=== PATIENT | male | born 1965 | race African-American/Black ===

== ENCOUNTER 2018-08-31 09:19 | Emergency (ER) | payer MEDICARE, MEDICAID ==
--- NOTE | 2018-08-31 13:31 | RAD ---
CHEST TWO VIEWS: Date: 08-31-18 Comparison: 12-12-10 FINDINGS: The heart is normal in size and the lungs are clear. No infiltrate or effusion was seen. At most ther e may be some minor accentuation of some of the interstitial lung markings, but no more so than befor e. No focal pulmonary findings of concern were found. The mediastinum was unremarkable. IMPRESSION: No acute thoracic findings. POS: HOME
== END 2018-08-31 10:35 | disposition home or self-care (01) ==
LOC: BURERS 09:19
DX: J06.9 Acute upper respiratory infection, unspecified (principal); B20 Human immunodeficiency virus [HIV] disease; I10 Essential (primary) hypertension; F17.210 Nicotine dependence, cigarettes, uncomplicated; Z79.899 Other long term (current) drug therapy
CPT/HCPCS: 71046; 87804

== ENCOUNTER 2018-12-20 10:18 | Emergency (ER) | payer MEDICARE, MEDICAID ==
[2018-12-20] MEDS ORDERED: Lidocaine 2% PF 5 ML VIAL ONE (10:36)
[2018-12-20] MEDS ORDERED: cefTRIAXone\\ROCEPHIN 1 GM VIAL ONE (10:36)
[2018-12-20] MEDS ORDERED: HYDROcodone/Acetaminophen 10/325 mg Tablet ONE (10:36)
== END 2018-12-20 10:48 | disposition home or self-care (01) ==
LOC: BURERS 10:18
DX: K04.7 Periapical abscess without sinus (principal); K02.9 Dental caries, unspecified; I10 Essential (primary) hypertension; Z21 Asymptomatic human immunodeficiency virus [HIV] infection status; Z79.899 Other long term (current) drug therapy
CPT/HCPCS: 96372; J0696; J2001

== ENCOUNTER 2020-05-16 20:04 | Emergency (ER) | payer MEDICARE, MEDICAID ==
[2020-05-16] MEDS ORDERED: Lidocaine Viscous Sol 2% 15 ml UD Cup ONE ×2 (20:24→20:25)
[2020-05-16] MEDS ORDERED: Lidocaine 1% w/Epinephrine 1:100K 20 ML VIAL ONE (20:24)
[2020-05-16] MEDS ORDERED: cefTRIAXone\\ROCEPHIN 1 GM VIAL ONE (20:30)
[2020-05-16] MEDS ORDERED: Ibuprofen 800 MG TAB ONE (20:43)
== END 2020-05-16 20:40 | disposition home or self-care (01) ==
LOC: BURERS 20:04
DX: K04.7 Periapical abscess without sinus (principal); I10 Essential (primary) hypertension; B20 Human immunodeficiency virus [HIV] disease; Z79.899 Other long term (current) drug therapy
CPT/HCPCS: 41800; J0696

== ENCOUNTER 2022-07-03 13:07 | Emergency (ER) | payer MEDICARE, MEDICAID | END 2022-07-03 13:53 | disposition home or self-care (01) | LOC: BURERS 13:07 | DX: L02.02 Furuncle of face (principal); I10 Essential (primary) hypertension; F17.210 Nicotine dependence, cigarettes, uncomplicated; Z79.899 Other long term (current) drug therapy | CPT/HCPCS: 99282 ==